=== PATIENT | female | born 1955 | race Caucasian/White ===

== ENCOUNTER 2017-03-12 19:14 | Emergency (ER) | payer OTHER ==
[2017-03-12] MEDS ORDERED: NS 500 ML IV ONE (19:28)
--- NOTE | 2017-03-12 19:34 | EDPHY ---
H & P Time Seen by Provider: 03/12/17 19:23 HPI/ROS: HPI Speech disturbance, visual changes. 61-year-old female by private vehicle with family. This patient reports that at approximately 6:00 p.m. she noticed wavy lines from the right eye, upper lateral visual field. She reports that she called her sister regarding this. Her sister reports that she had word-finding difficulty and garbled speech. This lasted 2-5 minutes and then resolved. She has gradually improved further and route to the emergency department. She lives about [place] up in the [facility]. She states that after resolution of her speech disturbance and visual changes she developed a left-sided frontal headache. She has a long history of migraine headaches. She reports that she does not usually get visual auras but has had these in the past. ROS: Constitutional: No fever, no chills. No weakness. Eyes: No discharge. As above. ENT: No sore throat. No nasal congestion or rhinorrhea. Respiratory: No cough. No shortness of breath. Cardiac: No chest pain, no palpitations. Gastrointestinal: No abdominal pain, no vomiting, no diarrhea. Genitourinary: No hematuria. No dysuria or increased frequency with urination. Musculoskeletal: No back pain. No neck pain. No myalgias or arthralgias. Skin: No rashes. Neurological: As above. No focal weakness or altered sensation. Past medical history: Migraine headaches. Social history: Nonsmoker. Here with her family. No alcohol. As above. Physical Exam: General Appearance: Alert, no distress. This patient is responding to questions appropriately and in full sentences. This patient appears well- hydrated and well-nourished. Eyes: Pupils equal and round and reactive to light at 3-2 mm, no pallor or injection. No lid edema, erythema or injection. No nystagmus, no photophobia. ENT, Mouth: Mucous membranes are moist. The pharyngeal tissues are unremarkable. No edema or swelling. No asymmetry suggestive of abscess. No erythema or exudates. No tongue lacerations or abrasions. Respiratory: There are no retractions, lungs are clear to auscultation with good air movement bilaterally. Cardiovascular: Regular rate and rhythm. No murmur. Gastrointestinal: Abdomen is soft and nontender, no masses, bowel sounds normal. No focal tenderness at McBurney's point. No Molina sign. Neurological: Motor sensory function is grossly intact. Cranial nerves are normal. Gait is normal. Skin: Warm and dry, no rashes. Musculoskeletal: Neck is supple and nontender. No pain on flexion of the neck. Extremities are symmetrical. All joints range without pain or impingement. Psychiatric: No agitation. No depression. Database: EKG: EKG time is 7:32 p.m.; EKG shows a narrow complex normal sinus rhythm with a ventricular rate of 71. The MT, QRS, QT intervals are within normal limits. There are no ST-T wave changes indicative of ischemic or injury pattern. No evidence of right heart strain. Interpreted by me. Imaging: CT head without contrast: Age-related changes. Small lacunar hypodensities noted. Age indeterminate. Study read by Dr. Aram Mccord. Advises MRI of brain which has been ordered. Carotid artery Doppler ultrasounds: Negative. Results were discussed with staff radiologist Dr. Aram Mccord. Diffusion-weighted MRI brain without contrast: Nonspecific white matter changes. Negative study. Results were discussed with staff radiologist Dr. Aram Mccord. Procedures: Emergency department course: IV placed. She was placed on a monitor. EKG performed. Above imaging discussed with her and family. They endorse. Vital signs reviewed and are normal. 8:30 p.m., patient re-evaluated. Resting comfortably at this time. Repeat neurologic Assessment is nonfocal. Family discussed their concerns regarding her [facility] insurance. I explained I would call [facility] to inquire about admission and/or follow. 8:40 p.m., family now states that they want to take the patient home if her MRI is unremarkable. Spoke to Martina Berger [facility]. The patient's presentation case was discussed with her. [facility] will arrange for close follow-up with the patient's primary care physician at the [facility] tomorrow if the patient chooses to be discharged. 9:00 p.m., patient is currently in MRI. 9:20 p.m., patient re-evaluated. Resting comfortably at this time. Repeat neurologic Assessment is nonfocal. Results of MRI discussed with her and her family. She is still requesting discharge feels comfortable going home with family. She will follow up with her [facility] primary care physician tomorrow morning. Dr. Bhandari informed the [facility] will have her records transferred from our facility to there has. The patient understands for follow-up. Return to emergency department precautions were reviewed with her and her family. All of their questions were answered. The patient was discharged in good condition. Differential Diagnosis: The differential diagnosis on this patient includes but is not limited to TIA, complex migraine. This represents a partial list of diagnoses considered. These considerations are based on history, physical exam, past history, reassessment and diagnostic testing. Smoking Status: Never smoked Constitutional: Initial Vital Signs Temperature (C) 37 C 03/12/17 19:17 Heart Rate 67 03/12/17 19:17 Respiratory Rate 16 03/12/17 19:17 Blood Pressure 153/98 H 03/12/17 19:17 O2 Sat (%) 97 03/12/17 19:17 O2 Delivery Mode Room Air Allergies/Adverse Reactions: Penicillins Allergy (Verified 03/12/17 19:17) Home Medications: Medication Instructions Recorded Maxalt 03/12/17 Medical Decision Making - Diagnostics Imaging Results: Imaging Impressions Brain MRI 03/12/17 19:29 Impression: 1. Mild to moderate nonspecific hyperintense T2/FLAIR signal abnormalities in the white matter of bilateral frontal and parietal lobes. Differential diagnosis includes microvascular ischemic disease, post-infectious/post- inflammatory sequela, atypical demyelinating disease, or migraine-related sequela. . 2. No acute infarct, hemorrhage, hydrocephalus, mass effect, or herniation. Findings discussed with Luis M Harden MD at 21:15 hour, 03/12/2017. Carotid Doppler Study 03/12/17 19:29 Impression: No evidence of flow-limiting carotid stenosis. Measurement of carotid stenosis is based on velocity parameters that correlate the residual internal carotid diameter with [place] Symptomatic Carotid Endarterectomy Trial (NASCET) based stenosis levels. Head CT 03/12/17 19:29 Impression: 1. No hemorrhage, mass effect, or definite acute peripheral infarct 2. Mild nonspecific hypodensities in the white matter of bilateral parietal periventricular regions. Differential diagnosis includes microvascular ischemic disease, post-infectious/post-inflammatory sequela, atypical demyelinating disease, or migraine-related sequela. Small white matter lacunar infarcts may also have this appearance. Findings discussed with Luis M Harden MD at 20:53 hour, 03/12/2017. - Data Points Laboratory Results: Laboratory Results 03/12/17 19:34 03/12/17 19:34 03/12/17 03/12/17 19:34 19:34 WBC 7.40 10^3/uL 10^3/uL (3.80-9.50) RBC 4.86 10^6/uL 10^6/uL (4.18-5.33) Hgb 14.2 g/dL g/dL (12.6-16.3) Hct 41.8 % % (38.0-47.0) MCV 86.0 fL fL (81.5-99.8) MCH 29.2 pg pg (27.9-34.1) MCHC 34.0 g/dL g/dL (32.4-36.7) RDW 12.5 % % (11.5-15.2) Plt Count 359 10^3/uL 10^3/uL (150-400) MPV 9.7 fL fL (8.7-11.7) Neut % (Auto) 68.7 % % (39.3-74.2) Lymph % (Auto) 20.3 % % (15.0-45.0) [place] % (Auto) 7.3 % % (4.5-13.0) Eos % (Auto) 2.6 % % (0.6-7.6) Baso % (Auto) 0.7 % % (0.3-1.7) Nucleat RBC Rel Count 0.0 % % (0.0-0.2) Absolute Neuts (auto) 5.09 10^3/uL 10^3/uL (1.70-6.50) Absolute Lymphs (auto) 1.50 10^3/uL 10^3/uL (1.00-3.00) Absolute Monos (auto) 0.54 10^3/uL 10^3/uL (0.30-0.80) Absolute Eos (auto) 0.19 10^3/uL 10^3/uL (0.03-0.40) Absolute Basos (auto) 0.05 10^3/uL 10^3/uL (0.02-0.10) Absolute Nucleated RBC 0.00 10^3/uL 10^3/uL (0-0.01) Immature Gran % 0.4 % % (0.0-1.1) Immature Gran # 0.03 10^3/uL 10^3/uL (0.00-0.10) Sodium 136 mEq/L mEq/L (134-144) Potassium 4.3 mEq/L mEq/L (3.5-5.2) Chloride 101 mEq/L mEq/L (97-110) Carbon Dioxide 25 mEq/l mEq/l (22-31) Anion Gap 10 mEq/L mEq/L (8-16) BUN 13 mg/dL mg/dL (7-23) Creatinine 0.9 mg/dL mg/dL (0.6-1.0) Estimated GFR > 60 Glucose 88 mg/dL mg/dL (70-100) Calcium 10.8 mg/dL H mg/dL (8.5-10.4) Phosphorus Pending Medications Given: Discontinued Medications Sodium Chloride (Ns) 500 mls @ 0 mls/hr IV ONCE ONE; Wide Open PRN Reason: Protocol Stop: 03/12/17 19:29 Last Admin: 03/12/17 19:42 Dose: 500 mls Departure - Departure Disposition: Home, Routine, Self-Care Clinical Impression: Transient speech disturbance, Transient visual disturbance Condition: Good Instructions: Migraine Headache (ED) Additional Instructions: Read and follow provided instructions. Follow-up with your primary care physician at [facility] , tomorrow as discussed. You will have to call in the morning for your appointment time. They will obtain her records from us. Return to the emergency department for return of symptoms, worsening headache, any loss of sensation or weakness in her extremities, visual changes or other serious concerns. Referrals: MD MARTINA NOT SURE [Other] - As per Instructions
--- NOTE | 2017-03-12 19:39 | CPEKG ---
Heart Rate: 71 RR Interval: 845 P-R Interval: 176 QRSD Interval: 92 QT Interval: 388 QTC Interval: 422 P Palisades: 57 QRS Palisades: 8 T Wave Palisades: 33 EKG Severity - BORDERLINE ECG - EKG Impression: SINUS RHYTHM EKG Impression: BORDERLINE R WAVE PROGRESSION, ANTERIOR LEADS Electronically Signed By: Luis M Harden 12-Mar-2017 21:26:11
[2017-03-12 20:36] LABS: % IMMATURE GRANULYOCYTES 0.4 % (0.0-1.1); ABSOLUTE IMMATURE GRANULOCYTES 0.03 10^3/uL (0.00-0.10); ADD DIFF? NO; ADD MORPH? NO; ADD SCAN? NO; ATYPICAL LYMPHOCYTE FLAG 10 (0-99); FRAGMENT RBC FLAG 0 (0-99); HEMATOCRIT 41.8 % (38.0-47.0); HEMOGLOBIN 14.2 g/dL (12.6-16.3); LEFT SHIFT FLG 0 (0-99); LIPEMIA HEMOLYSIS FLAG 90 (0-99); MEAN CELL HEMOGLOBIN 29.2 pg (27.9-34.1); MEAN PLATELET VOLUME 9.7 fL (8.7-11.7); PLATELET CLUMPS FLAG 0 (0-99); PLATELET COUNT 359 10^3/uL (150-400); RED BLOOD CELL COUNT 4.86 10^6/uL (4.18-5.33); RED CELL DISTRIBUTION WIDTH 12.5 % (11.5-15.2)
[2017-03-12 20:42] LABS: ANION GAP 10 mEq/L (8-16); CALCIUM 10.8 mg/dL (8.5-10.4); CARBON DIOXIDE 25 mEq/l (22-31); CHLORIDE 101 mEq/L (97-110); CREATININE 0.9 mg/dL (0.6-1.0); GLOMERULAR FILTRATION RATE > 60; GLUCOSE 88 mg/dL (70-100); POTASSIUM 4.3 mEq/L (3.5-5.2); SODIUM 136 mEq/L (134-144)
[2017-03-12 21:46] VITALS: BP 150/94; PULSE 74; RESP 14; TEMP 97.9; O2SAT 96
== END 2017-03-12 21:39 | disposition home or self-care (01) ==
DX: H53.8 Other visual disturbances (principal); R47.89 Other speech disturbances

== ENCOUNTER → 2018-11-11 | Outpatient (CLI) | payer OTHER | LOC: BMCIMAGING 09:21 | PROVIDERS: ATTEND Internal Medicine | DX: Z13.820 Encounter for screening for osteoporosis (principal); M85.80 Other specified disorders of bone density and structure, unspecified site ==